=== PATIENT | male | born 1950 | race Two or more races ===

== ENCOUNTER 2019-01-25 06:22 | Emergency (ER) | payer OTHER ==
[~2019-01-25] VITALS: Ht 165.1 cm; Wt 95.3 kg
[~2019-01-25 06:22] MED LIST: AVAPRO150 MG PO; CEFADROXIL500 MG PO; PERCOCET 5/321 UDTAB PO; PERCOCET 5/3251 TAB PO; XARELTO10 MG PO
== END 2019-01-25 13:37 | disposition home or self-care (01) ==
LOC: ER 06:22
DX: N39.0 Urinary tract infection, site not specified (principal); B96.89 Other specified bacterial agents as the cause of diseases classified elsewhere; R42 Dizziness and giddiness

== ENCOUNTER 2019-05-30 11:51 | Inpatient (IN) | payer OTHER ==
[~2019-05-30] VITALS: Ht 167.6 cm; Wt 99.8 kg
[2019-06-13] MEDS ORDERED: DUI500 PO (14:32)
[2019-06-13] MEDS ORDERED: ELIQUIS2.5 MG PO (14:32)
[2019-06-13] MEDS ORDERED: PERCOCET 5-3251 EACH PO (14:36)
== END 2019-06-13 16:29 | DRG 467 ==
LOC: SURG 06-03 07:00 → O/R 06-11 06:20 → SURG 06-11 07:00
PROVIDERS: ADMIT Orthopaedic Surgery
PROC: 0SRC0J9 Replacement of Right Knee Joint with Synthetic Substitute, Cemented, Open Approach (ICD-10-PCS; 2019-06-11)
PROC: 0SNC0ZZ Release Right Knee Joint, Open Approach (ICD-10-PCS; 2019-06-11)
PROC: 0SPC0JZ Removal of Synthetic Substitute from Right Knee Joint, Open Approach (ICD-10-PCS; principal; 2019-06-11 07:00)
DX: T84.032A Mechanical loosening of internal right knee prosthetic joint, initial encounter (principal); D62 Acute posthemorrhagic anemia; N39.0 Urinary tract infection, site not specified; T84.018A Broken internal joint prosthesis, other site, initial encounter; M17.11 Unilateral primary osteoarthritis, right knee; M85.462 Solitary bone cyst, left tibia and fibula; M25.662 Stiffness of left knee, not elsewhere classified; I10 Essential (primary) hypertension; E11.9 Type 2 diabetes mellitus without complications; Z96.652 Presence of left artificial knee joint; Z79.4 Long term (current) use of insulin; R30.0 Dysuria; D51.0 Vitamin B12 deficiency anemia due to intrinsic factor deficiency; E78.00 Pure hypercholesterolemia, unspecified; E88.1 Lipodystrophy, not elsewhere classified; E66.8 Other obesity; I12.9 Hypertensive chronic kidney disease with stage 1 through stage 4 chronic kidney disease, or unspecified chronic kidney disease; J84.10 Pulmonary fibrosis, unspecified

== ENCOUNTER 2022-03-17 09:05 | Inpatient (IN) | payer OTHER ==
[~2022-03-17] VITALS: Ht 167.6 cm; Wt 102.1 kg
[~2022-03-17 09:05] MED LIST changes: +DUI500 PO; +ELIQUIS2.5 MG PO; +PERCOCET 5-3251 EACH PO
[2022-03-22] MEDS ORDERED: ESOMEPRAZOLE MA40 MG (13:09)
[2022-03-22] MEDS ORDERED: DICLOFENAC POTA50 MG (13:09)
[2022-03-22] MEDS ORDERED: TIZANIDINE HCL4 MG (13:09)
[2022-03-22] MEDS ORDERED: PREDNISONE20 M1 (13:09)
[2022-03-22] MEDS ORDERED: ROSUVASTATIN CA10 MG (13:10)
[2022-03-22] MEDS ORDERED: GABAPENTIN800 M1 (13:10)
[2022-03-24] MEDS ORDERED: ULTRACET PO (15:50)
[2022-03-24] MEDS ORDERED: ELIQUIS2.5 MG PO (15:50)
[2022-03-24] MEDS ORDERED: DUI500 PO (15:50)
== END 2022-03-24 19:12 | disposition home or self-care (01) | DRG 470 ==
LOC: SURG 03-22 06:22 → O/R 03-22 06:22 → SURH 03-22 09:15 → SURG 03-22 23:49
PROVIDERS: ADMIT Orthopaedic Surgery; ATTEND Orthopaedic Surgery
PROC: 0SR90JZ Replacement of Right Hip Joint with Synthetic Substitute, Open Approach (ICD-10-PCS; principal; 2022-03-22 13:00)
DX: M16.11 Unilateral primary osteoarthritis, right hip (principal); D62 Acute posthemorrhagic anemia; M25.751 Osteophyte, right hip; M70.61 Trochanteric bursitis, right hip; E66.9 Obesity, unspecified; I10 Essential (primary) hypertension; Z20.822 Contact with and (suspected) exposure to COVID-19

== ENCOUNTER 2022-08-04 10:15 | Inpatient (IN) | payer OTHER ==
[~2022-08-04] VITALS: Ht 167.6 cm; Wt 89.4 kg
[~2022-08-04 10:15] MED LIST changes: +DICLOFENAC POTA50 MG; +ESOMEPRAZOLE MA40 MG; +GABAPENTIN800 M1; +PREDNISONE20 M1; +ROSUVASTATIN CA10 MG; +TIZANIDINE HCL4 MG; +ULTRACET PO
[2022-08-09] MEDS ORDERED: ESOMEPRAZOLE MA40 MG (08:46)
[2022-08-09] MEDS ORDERED: ST. JOSEPH ASPI81 M2 (08:46)
[2022-08-09] MEDS ORDERED: TIZANIDINE HCL4 MG (08:46)
[2022-08-11] MEDS ORDERED: DUI500 PO (16:58)
[2022-08-11] MEDS ORDERED: ELIQUIS2.5 MG PO (16:58)
[2022-08-11] MEDS ORDERED: ULTRACET PO (16:58)
== END 2022-08-11 22:47 | disposition home or self-care (01) | DRG 470 ==
LOC: SURH 08-09 06:56 → O/R 08-09 06:56 → SURH 08-09 07:00
PROVIDERS: ADMIT Orthopaedic Surgery; ATTEND Orthopaedic Surgery
PROC: 0SRB0J9 Replacement of Left Hip Joint with Synthetic Substitute, Cemented, Open Approach (ICD-10-PCS; principal; 2022-08-09 07:00)
DX: M16.12 Unilateral primary osteoarthritis, left hip (principal); D62 Acute posthemorrhagic anemia; I10 Essential (primary) hypertension